=== PATIENT | male | born 1950 | race Caucasian/White ===

== ENCOUNTER 2018-06-24 23:22 | Emergency (ER) | payer BC ==
[~2018-06-24] VITALS: Ht 167.6 cm; Wt 86.2 kg
--- NOTE | 2018-06-25 00:20 | PHYS DOC ---
Adult General Chief Complaint Chief Complaint Head laceration HPI HPI 68 years old male presented to the emergency department with laceration of the scalp after fall his been drinking tonight. No noticed he became unconscious he is denying that Review of Systems Review of Systems Limited due to patient intoxication status Current Medications Current Medications Current Medications Medications (Trade) Dose Ordered Sig/Johanne Start Time Stop Time Status Last Admin Dose Admin Multivitamins/ Minerals 10 ml/ Folic Acid 1 mg/ Thiamine HCl 100 mg/Sodium Chloride 1,011.1 ml @ 1,000 mls/ hr 1X ONCE 06/25/18 00:00 06/25/18 01:00 UNV Ondansetron HCl (Zofran) 4 mg 1X ONCE 06/25/18 00:00 06/25/18 00:01 UNV Physical Exam Physical Exam Constitutional: Well developed, well nourished, no acute distress, non-toxic appearance. [] HENT: Normocephalic, atraumatic, bilateral external ears normal, oropharynx moist, no oral exudates, nose normal. [] Eyes: PERRLA, EOMI, conjunctiva normal, no discharge. [] Neck: Normal range of motion, no tenderness, supple, no stridor. [] Cardiovascular:Heart rate regular rhythm, no murmur [] Lungs & Thorax: Bilateral breath sounds clear to auscultation [] Abdomen: Bowel sounds normal, soft, no tenderness, no masses, no pulsatile masses. [] Skin: 2 x 4 cm laceration] Back: No tenderness, no CVA tenderness. [] Extremities: No tenderness, no cyanosis, no clubbing, ROM intact, no edema. [] Neurologic: Alert and oriented X 3, normal motor function, normal sensory function, no focal deficits noted. [] Psychologic: Affect normal, judgement normal, mood normal. [] EKG EKG [] Radiology/Procedures Radiology/Procedures [] Course & Med Decision Making Course & Med Decision Making Pertinent Labs and Imaging studies reviewed. (See chart for details) [] Final Impression Final Impression [] Problems: (1) Intoxication (2) Scalp laceration Qualifiers: Qualified Codes: S01.01XA - Laceration without foreign body of scalp, initial encounter Dragon Disclaimer Dragon Disclaimer This electronic medical record was generated, in whole or in part, using a voice recognition dictation system. IRIS MCKEON MD Jun 25, 2018 00:20
--- NOTE | 2018-06-25 00:36 | RAD ---
PQRS Compliance Statement: One or more of the following individualized dose reduction techniques were utilized for this examination: 1. Automated exposure control 2. Adjustment of the mA and/or kV according to patient size 3. Use of iterative reconstruction technique CT head and cervical spine without contrast 06/25/2018 12:03 AM INDICATION: Fall down stairs with headache and laceration to posterior head. COMPARISON: None available TECHNIQUE: Multiple axial CT images of the head were obtained from skull base through the vertex without intravenous contrast. Multiple axial CT images of the cervical spine were obtained without intravenous contrast. Coronal and sagittal reformats are provided. FINDINGS: Head: Ventricles, sulci and basal cisterns are within normal limits. There is no hydrocephalus. Aponte-white matter differentiation is normal. There is no acute intracranial hemorrhage. There is no mass, mass effect or midline shift. Posterior fossa is normal in appearance. Increased density of the intracranial vasculature the venous sinuses may be secondary to hemoconcentration. Visualized portions of the orbits are normal with exception of bilateral lens replacement. There is complete opacification of the right frontal sinus. There is moderate mucosal thickening of ethmoid air cells. Mastoid air cells are well aerated. Scalp and calvaria are normal. Cervical spine: Alignment of the cervical spine is normal. Skull base is intact. Craniocervical junction is normal in appearance. Atlantoaxial articulation is normal with mild thickening of the transverse ligament with pannus formation. Vertebral body heights are maintained without evidence for acute fracture. Mild cervical spondylosis with left-sided mild to moderate facet arthropathy. Mild posterior disc osteophyte complex at C5-C6 and C6-C7 without significant osseous neuroforaminal or spinal canal stenosis. Mild neuroforaminal stenosis is identified bilaterally at C5-C6. There is no prevertebral soft tissue swelling. 8 mm nodule identified in the inferior right thyroid gland. Visualized portions of the lung apices are normal without evidence for suspicious pulmonary nodule or infiltrate. IMPRESSION: 1. No acute intracranial hemorrhage. 2. No acute fracture or malalignment of the cervical spine. Electronically signed by: Corina Marcus MD (06/25/2018 12:32 AM) [facility] [id number]
[2018-06-25] MEDS ORDERED: THIAMINE 200 MG/2 ML VIAL. IV ONE (00:55)
[2018-06-25] MEDS ORDERED: FOLIC ACID 5 MG/ML SYRINGE for ER IV ONE (00:56)
[2018-06-25] MEDS ORDERED: MVI, ADULT NO.4 WITH VIT K 10 ML VIAL IV ONE (00:56)
[2018-06-25] MEDS ORDERED: ONDANSETRON PF 4 MG/2 ML VIAL. IV ONE (01:00)
[2018-06-25] MEDS ORDERED: MVI, ADULT NO.4 WITH VIT K 10 ML, FOLIC ACID SYRINGE for ER 1 MG, THIAMINE INJ 100 MG i... IV ONE ×4 (01:00)
[2018-06-25 01:07] LABS: BASO % 1 % (0-3); EOS # 0.4 x10^3/uL (0.0-0.7); EOS % 4 % (0-3); HEMATOCRIT 45.8 % (39.0-53.0); HEMOGLOBIN 15.5 g/dL (13.0-17.5); LYMPH # 2.4 x10^3/uL (1.0-4.8); LYMPH % 27 % (24-48); MEAN CORPUSCULAR HEMOGLOBIN 31 pg (25-35); MEAN CORPUSCULAR HGB CONC 34 g/dL (31-37); MEAN CORPUSCULAR VOLUME 91 fL (79-100); MONO # 0.6 x10^3/uL (0.0-1.1); MONO % 7 % (0-9); NEUT # 5.6 x10^3uL (1.8-7.7); NEUT % 62 % (31-73); PLATELET COUNT 221 x10^3/uL (140-400); RED BLOOD COUNT 5.01 x10^6/uL (4.30-5.70); RED CELL DISTRIBUTION WIDTH 13.5 % (11.5-14.5); WHITE BLOOD COUNT 8.9 x10^3/uL (4.0-11.0)
[2018-06-25 01:11] LABS: CREATININE 1.8 mg/dL (0.7-1.3); GFR 37.9; POTASSIUM 4.1 mmol/L (3.5-5.1)
[2018-06-25 01:50] VITALS: BP 115/65
== END 2018-06-25 02:00 | disposition home or self-care (01) ==
LOC: ER 23:22
DX: S01.01XA Laceration without foreign body of scalp, initial encounter (principal); F10.129 Alcohol abuse with intoxication, unspecified; W10.8XXA Fall (on) (from) other stairs and steps, initial encounter; Y93.89 Activity, other specified; Y92.89 Other specified places as the place of occurrence of the external cause; Y99.8 Other external cause status; Y90.8 Blood alcohol level of 240 mg/100 ml or more
CPT/HCPCS: 12001; 36415; 70450; 72125; 80048; 85025; 96365; 96375; 99284; G0480; J2405; J7030